=== PATIENT | female | born 1930 | race Caucasian/White ===

== ENCOUNTER → 2017-09-02 | Outpatient (CLI) | payer OTHER ==
[~2017-09-02] MED LIST: ASCAUNK PO; ASPEC81 PO; CBCI IV; CLTP PO; DOXY50CA PO; EPP3/2 IM; FSM70 PO; MULT-190 PO; MULTTAB58 PO; SERT100T PO; SIMV10TA2 PO; STLS PO; selenium PO
--- NOTE | 2017-09-03 07:42 | MAMMOGRAPHY REPORT ---
BILATERAL DIGITAL SCREENING MAMMOGRAM TOMOSYNTHESIS WITH CAD: 09/02/2017 CLINICAL HISTORY: Routine screening. Patient has no complaints. TECHNIQUE: Bilateral CC and MLO views of the breasts were obtained. With and without implant displac ement views were also obtained in the right breast. Tomosynthesis was performed on the right-sided i mplant displaced views and left-sided views. Current study was also evaluated with a Computer Aided Detection (CAD) system. COMPARISON: Comparison is made to exams dated: 08/29/2016 mammogram, 02/27/2016 mammogram, 08/29/2015 ma mmogram, 08/26/2014 mammogram, 08/19/2013 mammogram, and 02/04/2013 mammogram - [facility] enter. BREAST COMPOSITION: There are scattered areas of fibroglandular density in both breasts. FINDINGS: A right-sided subpectoral silicone implant as well as right breast autologous reconstructi on are stable compared to prior mammograms. There are stable postsurgical changes in the left breast , with dystrophic calcifications again seen throughout the left breast. No new suspicious masses, ca lcifications, asymmetries or areas of distortion are identified bilaterally. Recommend routine scree frances in 1 year. IMPRESSION: ACR BI-RADS CATEGORY 1: NEGATIVE There is no mammographic evidence of malignancy. A 1 year screening mammogram is recommended. The pa tient will receive written notification of the results. Approximately 10% of breast cancers are not detected with mammography. A negative mammographic report should not delay biopsy if a clinically suggestive mass is present. Berna Curry M.D. ay/:09/02/2017 16:20:41 [employer]: Sandra MCCONNELL(Perry)(Javier)(BD), [facility] letter sent: Normal 1/2 BI-RADS Code: ACR BI-RADS Category 1: Negative
== END | disposition home or self-care (01) ==
LOC: C.MAMM 13:20
PROVIDERS: ATTEND Internal Medicine Hematology
DX: Z12.31 Encounter for screening mammogram for malignant neoplasm of breast (principal); Z90.11 Acquired absence of right breast and nipple; Z98.82 Breast implant status

== ENCOUNTER 2018-05-16 19:56 | Emergency (ER) | payer OTHER ==
[~2018-05-16] VITALS: Ht 160 cm; Wt 61.3 kg
[2018-05-16 20:01] VITALS: TEMP 36.6; Ht 160 cm; Wt 61.3 kg
[2018-05-16 20:18] VITALS: O2SAT 98
[2018-05-16 20:41] LABS: BASO % 0.4 %; BASO ABS # 0.03 K/uL (0-0.2); EOS % 1.6 %; EOS ABS # 0.13 K/uL (0-0.5); HEMATOCRIT 38.2 % (37-47); HEMOGLOBIN 13.3 g/dL (12.0-16.0); IG# 0.03 K/uL (0.00-0.02); LYMPH % 19.2 %; LYMPH ABS # 1.52 K/uL (1.2-3.4); MEAN CORPUSCULAR HEMOGLOBIN 30.6 pg (25-34); MEAN CORPUSCULAR HGB CONC 34.8 g/dl (32-36); MEAN PLATELET VOLUME 9.6 fL (7.4-10.4); MONO ABS # 0.87 K/uL (0.11-0.59); NEUT % 67.4 %; NEUT ABS # 5.34 K/uL (1.4-6.5); PLATELET COUNT 216 K/uL (130-400); RED CELL DISTRIBUTION WIDTH CV 13.7 % (11.5-14.5); RED CELL DISTRIBUTION WIDTH SD 44.7 fL (36.4-46.3); WHITE BLOOD COUNT 7.92 K/uL (4.8-10.8)
[2018-05-16 21:00] LABS: CALCIUM 8.5 mg/dl (8.5-10.1); CREATININE 0.44 mg/dl (0.60-1.20); POTASSIUM 3.8 mmol/L (3.5-5.1)
--- NOTE | 2018-05-16 21:04 | DIAGNOSTIC IMAGING REPORT ---
CT OF THE HEAD WITHOUT CONTRAST CLINICAL HISTORY: EVALUATE FOR TRAUMA/INJURY COMPARISON STUDY: MRI of the brain August 05, 2009. TECHNIQUE: Helical axial images of the head were obtained without IV contrast. Automated exposure control was utilized for the study. A dose lowering technique was utilized adhering to the principles of ALARA. FINDINGS: No acute intracranial hemorrhage, midline shift or mass effect is present. Ventricular system is normal. Basilar cisterns are patent. No extra-axial collections are present. Lafleur-white differentiation is maintained. There is no calvarial fracture. A small left posterior scalp contusion is present. IMPRESSION: 1. No acute intracranial findings. 2. Small left posterior scalp contusion with no calvarial fracture. Electronically signed by: Alexis Yadav M.D. 05/16/2018 9:03 PM Dictated Date/Time: 05/16/2018 9:01 PM
--- NOTE | 2018-05-16 21:08 | DIAGNOSTIC IMAGING REPORT ---
CT OF THE CERVICAL SPINE WITHOUT CONTRAST CLINICAL HISTORY: EVALUATE FOR TRAUMA/INJURY COMPARISON STUDY: No previous studies for comparison. TECHNIQUE: Helical axial images of the cervical spine were obtained without IV contrast. Sagittal and coronal reconstructions were viewed. A dose lowering technique was utilized adhering to the principles of ALARA. FINDINGS: Alignment of the cervical spine is anatomic. Vertebral body heights are maintained. There is no acute cervical spine fracture. Craniocervical junction is intact. Moderate multilevel degenerative disc disease and facet arthrosis is present. Multinodular thyroid gland is again noted. This was shown on carotid ultrasound of May 27, 2013. IMPRESSION: No acute cervical spine fracture or subluxation. Electronically signed by: Alexis Yadav M.D. 05/16/2018 9:07 PM Dictated Date/Time: 05/16/2018 9:04 PM
--- NOTE | 2018-05-16 21:16 | DIAGNOSTIC IMAGING REPORT ---
CT OF THE CHEST WITHOUT IV CONTRAST CLINICAL HISTORY: Trauma. COMPARISON STUDY: Chest radiograph February 18, 2012. TECHNIQUE: Axial images of the chest were obtained without IV contrast. Images were reviewed in the axial, sagittal, and coronal planes. IV contrast was not administered for this examination. A dose lowering technique was utilized adhering to the principles of ALARA. FINDINGS: A right breast implant is noted. There is no mediastinal hematoma. Heart is mildly enlarged. Multinodular thyroid gland is noted. Central airways are patent. No pneumothorax or pleural effusion is noted. Ground glass opacities reflect atelectasis. There is no pulmonary contusion. No acute rib or thoracic spine fracture is identified. The thoracic spine is better depicted on the thoracic spine CT. The abdomen and pelvis will be reported separately. IMPRESSION: No acute traumatic findings within the chest. Electronically signed by: Alexis Yadav M.D. 05/16/2018 9:14 PM Dictated Date/Time: 05/16/2018 9:07 PM
--- NOTE | 2018-05-16 21:18 | DIAGNOSTIC IMAGING REPORT ---
THORACIC SPINE WITHOUT CLINICAL HISTORY: Pain following fall. COMPARISON STUDY: No previous studies for comparison. TECHNIQUE: Axial images of the thoracic spine were obtained without IV contrast. Sagittal and coronal reconstructions were viewed. FINDINGS: Alignment of the thoracic spine is anatomic. Vertebral body heights are maintained. There is no acute fracture. No suspicious lesion is identified. There is mild disc space narrowing with moderate anterior osteophytosis of the thoracic spine. Central canal and neural foramen are suboptimally assessed given CT technique. IMPRESSION: No acute thoracic spine fracture or subluxation. Electronically signed by: Alexis Yadav M.D. 05/16/2018 9:16 PM Dictated Date/Time: 05/16/2018 9:14 PM
--- NOTE | 2018-05-16 21:28 | DIAGNOSTIC IMAGING REPORT ---
CT OF THE ABDOMEN AND PELVIS WITHOUT CONTRAST CLINICAL HISTORY: Trauma. Lumbar pain. COMPARISON STUDY: CT of the abdomen May 31, 2009. TECHNIQUE: Axial images of the abdomen and pelvis were obtained without IV contrast. Images were reviewed in the axial, sagittal, and coronal planes. A dose lowering technique was utilized adhering to the principles of ALARA. FINDINGS: The chest CT will be reported separately. A right hepatic lobe cyst is noted. 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 There is no evidence for rupture. Evaluation of the solid abdominal viscera is compromised on this unenhanced exam. There is no evidence for traumatic injury to the liver, spleen, adrenal glands, kidneys or pancreas. A 1.8 cm cyst likely within the pancreatic head is similar to previous exam. 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 There is no biliary or pancreatic ductal dilatation. Caliber of small and large bowel are normal. There is moderate distention of the bladder. Images of the pelvis are degraded by streak artifact from a left hip arthroplasty. No acute pelvic fracture is identified. There is no acute lumbar spine fracture. The lumbar spine will be reported separately. Note is made of an acute mildly displaced fracture through the S4 vertebral body. There is an age indeterminate nondisplaced S3 vertebral body fracture. IMPRESSION: 1. Acute nondisplaced fracture through the S4 vertebral body. Age indeterminate nondisplaced S3 vertebral body fracture. 2. No evidence for traumatic injury within the abdomen or pelvis on this unenhanced exam. 3. Moderate distention of the bladder. Electronically signed by: Alexis Yadav M.D. 05/16/2018 9:27 PM Dictated Date/Time: 05/16/2018 9:17 PM
--- NOTE | 2018-05-16 21:32 | DIAGNOSTIC IMAGING REPORT ---
LUMBAR SPINE WITHOUT CLINICAL HISTORY: Lumbar pain following fall. COMPARISON STUDY: Lumbar spine radiographs June 23, 2017. FINDINGS: No acute lumbar spine fracture is identified. Moderate multilevel degenerative disc disease and facet arthrosis is noted. There is mild S-shaped curvature of the lumbar spine. Sacroiliac joints are intact. Note is made of a nondisplaced S3 vertebral body fracture. The S4 fracture is better depicted on the CT of the abdomen and pelvis. IMPRESSION: 1. Age indeterminate, but likely acute, nondisplaced S3 vertebral body fracture. 2. Acute mildly displaced S4 vertebral body fracture which is shown on the CT of the abdomen and pelvis. 3. No acute lumbar spine fracture or subluxation. Electronically signed by: Alexis Yadav M.D. 05/16/2018 9:31 PM Dictated Date/Time: 05/16/2018 9:29 PM
--- NOTE | 2018-05-16 21:38 | DIAGNOSTIC IMAGING REPORT ---
PELVIS 1 OR 2 VIEW ROUTINE CLINICAL HISTORY: Fall. COMPARISON STUDY: Pelvis radiograph July 08, 2014. FINDINGS: Alignment of the total left hip arthroplasty is anatomic. The distal aspect of the femoral component was not imaged on this exam. No fracture is identified within the pelvis or hips. Sacroiliac joints and symphysis pubis are intact. IMPRESSION: 1. No acute fracture within the pelvis or hips. 2. Anatomic alignment of total left hip arthroplasty. Electronically signed by: Alexis Yadav M.D. 05/16/2018 9:37 PM Dictated Date/Time: 05/16/2018 9:36 PM
--- NOTE | 2018-05-16 21:38 | DIAGNOSTIC IMAGING REPORT ---
CHEST ONE VIEW PORTABLE CLINICAL HISTORY: EVALUATE FOR TRAUMA/INJURY COMPARISON STUDY: Chest radiograph February 18, 2012. FINDINGS: No pneumothorax or pleural effusion. Hazy right lower chest density represents breast implant. There is no airspace opacities. Cardiomediastinal silhouette is stable. Appearance of the chest is unchanged. IMPRESSION: No acute cardiopulmonary findings. No change in appearance of the chest. Electronically signed by: Alexis Yadav M.D. 05/16/2018 9:37 PM Dictated Date/Time: 05/16/2018 9:37 PM
[2018-05-16] MEDS ORDERED: KETOROLAC TROMETHAMINE 30 MG/ML VIAL IV STA (21:41)
[2018-05-16] MEDS ORDERED: NORCO 5/325MG HOME PACK PO ONE (21:45)
--- NOTE | 2018-05-16 22:07 | EMERGENCY ROOM VISIT NOTE ---
History Report prepared by Romina: Lucy Adams Under the Supervision of: Dr. Steve George M.D. First contact with patient: 19:58 Chief Complaint: FALL Stated Complaint: FALL/ BACK,NECK,TAILBONE PAIN History of Present Illness The patient is an 88 year old female who presents to the Emergency Room with complaints of an episode of a fall occurring prior to arrival. The patient states that she was walking through her dining room and caught her right foot in her dining room chair. She states that she heard herself hit the floor and could hear her son calling out to her. She reports that she did hit her head and they immediately placed ice in it. The patient complains of her tailbone hurting. She currently rates her pain as a 5/10 in severity. The patient denies dizziness, neck pain, loss of consciousness, nausea, right foot pain, changes in vision, leg pain, and arm pain. The patient notes that she takes a baby Aspirin daily. She notes that her shaking is normal for her when something happens. Source of History: patient Onset: prior to arrival Symptom Intensity: 5/10 Quality: other (fall) Timing: other (episode) Associated Symptoms: No LOC, No neck pain, No nausea Note: The patient complains of tailbone pain. The patient denies dizziness, right foot pain, change in vision, leg pain, and arm pain. Review of Systems See HPI for pertinent positives and negatives. A total of ten systems were reviewed and were otherwise negative. Past Medical & Surgical Medical Problems: (1) Breast cancer (2) Hypercholesterolemia (3) Osteoporosis Family History Diabetes mellitus FH: cancer FHx: gastric ulcer Social History Smoking Status: Never Smoker Smokeless Tobacco Use: No Alcohol Use: none Marital Status: Housing Status: lives with family Current/Historical Medications Scheduled Alendronate (Fosamax *), 70 MG PO WK Ascorbic Acid (Vitamin C Unknown Dose), 1,000 MG PO DAILY Aspirin Enteric Coated (Ecotrin Or Generic *), 81 MG PO DAILY Calcium/Vitamin D (Caltrate 600 Plus *), 1 TAB PO BID Daptomycin (Cubicin), 240 MG IV DAILY Doxycycline Hyclate (Vibramycin), 100 MG PO BID Epinephrine (Epipen), 0.3 MG IM UD Famotidine (Pepcid), 1 TAB PO BID Multiple Vitamin (Multivitamin), 1 TAB PO DAILY Ocuvite Preservision (Ocuvite Preservision), 1 TAB PO DAILY Sertraline Hcl (Zoloft), 100 MG PO DAILY Simvastatin (Zocor), 10 MG PO QPM Stool Softener (Stool Softener), 1 CAP PO BID [selenium], 200 MCG PO DAILY Scheduled PRN Ketorolac Tromethamine (Toradol), 1 TAB PO Q8 PRN for Pain Allergies Coded Allergies: BEE STING (Verified Allergy, Severe, ANAPHYLAXIS, 02/23/12) POLLEN (Verified Allergy, Unknown, unknown, 02/23/12) Physical Exam Vital Signs Date Time Temp Pulse Resp B/P (MAP) Pulse Ox O2 Delivery O2 Flow Rate FiO2 05/16/18 21:07 64 05/16/18 20:18 98 Room Air 05/16/18 20:18 98 Room Air 05/16/18 20:01 36.6 69 20 190/76 98 Room Air Physical Exam GENERAL: Awake, alert, well-appearing, in no distress. In C-collar. HENT: Normocephalic. Oropharynx unremarkable. Slight hematoma on the occiput of the head. EYES: Normal conjunctiva. Sclera non-icteric. NECK: Supple. No nuchal rigidity. In C-collar. RESPIRATORY: Clear to auscultation. No wheezes. Normal respiratory effort. CARDIAC: Normal rate. Normal rhythm. Extremities warm and well perfused. GI: Soft, non-distended. No tenderness to palpation. No rebound or guarding. No masses. RECTAL: Deferred. MUSCULOSKELETAL: Chest examination reveals no tenderness. The back is symmetrical on inspection without obvious abnormality. There is no CVA tenderness to palpation. Mild diffuse tenderness through the thoracic spine. Sacral tenderness. LOWER EXTREMITIES: Calves are equal size bilaterally and non-tender. No edema NEURO: Normal sensorium. No sensory or motor deficits noted. SKIN: Warm and dry. No rash or jaundice noted. No lacerations. Medical Decision & Procedures ER Provider Diagnostic Interpretation: Radiology results as stated below per my review and radiologist interpretation: THORACIC SPINE WITHOUT CLINICAL HISTORY: Pain following fall. COMPARISON STUDY: No previous studies for comparison. TECHNIQUE: Axial images of the thoracic spine were obtained without IV contrast. Sagittal and coronal reconstructions were viewed. FINDINGS: Alignment of the thoracic spine is anatomic. Vertebral body heights are maintained. There is no acute fracture. No suspicious lesion is identified. There is mild disc space narrowing with moderate anterior osteophytosis of the thoracic spine. Central canal and neural foramen are suboptimally assessed given CT technique. IMPRESSION: No acute thoracic spine fracture or subluxation. Electronically signed by: Alexis Yadav M.D. 05/16/2018 9:16 PM Dictated Date/Time: 05/16/2018 9:14 PM PELVIS 1 OR 2 VIEW ROUTINE CLINICAL HISTORY: Fall. COMPARISON STUDY: Pelvis radiograph July 08, 2014. FINDINGS: Alignment of the total left hip arthroplasty is anatomic. The distal aspect of the femoral component was not imaged on this exam. No fracture is identified within the pelvis or hips. Sacroiliac joints and symphysis pubis are intact. IMPRESSION: 1. No acute fracture within the pelvis or hips. 2. Anatomic alignment of total left hip arthroplasty. Electronically signed by: Alexis Yadav M.D. 05/16/2018 9:37 PM Dictated Date/Time: 05/16/2018 9:36 PM LUMBAR SPINE WITHOUT CLINICAL HISTORY: Lumbar pain following fall. COMPARISON STUDY: Lumbar spine radiographs June 23, 2017. FINDINGS: No acute lumbar spine fracture is identified. Moderate multilevel degenerative disc disease and facet arthrosis is noted. There is mild S-shaped curvature of the lumbar spine. Sacroiliac joints are intact. Note is made of a nondisplaced S3 vertebral body fracture. The S4 fracture is better depicted on the CT of the abdomen and pelvis. IMPRESSION: 1. Age indeterminate, but likely acute, nondisplaced S3 vertebral body fracture. 2. Acute mildly displaced S4 vertebral body fracture which is shown on the CT of the abdomen and pelvis. 3. No acute lumbar spine fracture or subluxation. Electronically signed by: Alexis Yadav M.D. 05/16/2018 9:31 PM Dictated Date/Time: 05/16/2018 9:[address] OF THE HEAD WITHOUT CONTRAST CLINICAL HISTORY: EVALUATE FOR TRAUMA/INJURY COMPARISON STUDY: MRI of the brain August 05, 2009. TECHNIQUE: Helical axial images of the head were obtained without IV contrast. Automated exposure control was utilized for the study. A dose lowering technique was utilized adhering to the principles of ALARA. FINDINGS: No acute intracranial hemorrhage, midline shift or mass effect is present. Ventricular system is normal. Basilar cisterns are patent. No extra-axial collections are present. Lafleur-white differentiation is maintained. There is no calvarial fracture. A small left posterior scalp contusion is present. IMPRESSION: 1. No acute intracranial findings. 2. Small left posterior scalp contusion with no calvarial fracture. Electronically signed by: Alexis Yadav M.D. 05/16/2018 9:03 PM Dictated Date/Time: 05/16/2018 9:01 PM CHEST ONE VIEW PORTABLE CLINICAL HISTORY: EVALUATE FOR TRAUMA/INJURY COMPARISON STUDY: Chest radiograph February 18, 2012. FINDINGS: No pneumothorax or pleural effusion. Hazy right lower chest density represents breast implant. There is no airspace opacities. Cardiomediastinal silhouette is stable. Appearance of the chest is unchanged. IMPRESSION: No acute cardiopulmonary findings. No change in appearance of the chest. Electronically signed by: Alexis Yadav M.D. 05/16/2018 9:37 PM Dictated Date/Time: 05/16/2018 9:[address] OF THE CHEST WITHOUT IV CONTRAST CLINICAL HISTORY: Trauma. COMPARISON STUDY: Chest radiograph February 18, 2012. TECHNIQUE: Axial images of the chest were obtained without IV contrast. Images were reviewed in the axial, sagittal, and coronal planes. IV contrast was not administered for this examination. A dose lowering technique was utilized adhering to the principles of ALARA. FINDINGS: A right breast implant is noted. There is no mediastinal hematoma. Heart is mildly enlarged. Multinodular thyroid gland is noted. Central airways are patent. No pneumothorax or pleural effusion is noted. Ground glass opacities reflect atelectasis. There is no pulmonary contusion. No acute rib or thoracic spine fracture is identified. The thoracic spine is better depicted on the thoracic spine CT. The abdomen and pelvis will be reported separately. IMPRESSION: No acute traumatic findings within the chest. Electronically signed by: Alexis Yadav M.D. 05/16/2018 9:14 PM Dictated Date/Time: 05/16/2018 9:[address] OF THE CERVICAL SPINE WITHOUT CONTRAST CLINICAL HISTORY: EVALUATE FOR TRAUMA/INJURY COMPARISON STUDY: No previous studies for comparison. TECHNIQUE: Helical axial images of the cervical spine were obtained without IV contrast. Sagittal and coronal reconstructions were viewed. A dose lowering technique was utilized adhering to the principles of ALARA. FINDINGS: Alignment of the cervical spine is anatomic. Vertebral body heights are maintained. There is no acute cervical spine fracture. Craniocervical junction is intact. Moderate multilevel degenerative disc disease and facet arthrosis is present. Multinodular thyroid gland is again noted. This was shown on carotid ultrasound of May 27, 2013. IMPRESSION: No acute cervical spine fracture or subluxation. Electronically signed by: Alexis Yadav M.D. 05/16/2018 9:07 PM Dictated Date/Time: 05/16/2018 9:[address] OF THE ABDOMEN AND PELVIS WITHOUT CONTRAST CLINICAL HISTORY: Trauma. Lumbar pain. COMPARISON STUDY: CT of the abdomen May 31, 2009. TECHNIQUE: Axial images of the abdomen and pelvis were obtained without IV contrast. Images were reviewed in the axial, sagittal, and coronal planes. A dose lowering technique was utilized adhering to the principles of ALARA. FINDINGS: The chest CT will be reported separately. A right hepatic lobe cyst is noted. 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 There is no evidence for rupture. Evaluation of the solid abdominal viscera is compromised on this unenhanced exam. There is no evidence for traumatic injury to the liver, spleen, adrenal glands, kidneys or pancreas. A 1.8 cm cyst likely within the pancreatic head is similar to previous exam. 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 There is no biliary or pancreatic ductal dilatation. Caliber of small and large bowel are normal. There is moderate distention of the bladder. Images of the pelvis are degraded by streak artifact from a left hip arthroplasty. No acute pelvic fracture is identified. There is no acute lumbar spine fracture. The lumbar spine will be reported separately. Note is made of an acute mildly displaced fracture through the S4 vertebral body. There is an age indeterminate nondisplaced S3 vertebral body fracture. IMPRESSION: 1. Acute nondisplaced fracture through the S4 vertebral body. Age indeterminate nondisplaced S3 vertebral body fracture. 2. No evidence for traumatic injury within the abdomen or pelvis on this unenhanced exam. 3. Moderate distention of the bladder. Electronically signed by: Alexis Yadav M.D. 05/16/2018 9:27 PM Dictated Date/Time: 05/16/2018 9:17 PM Laboratory Results 05/16/18 20:20 Red Blood Count 4.34, Mean Corpuscular Volume 88.0, Mean Corpuscular Hemoglobin 30.6, Mean Corpuscular Hemoglobin Concent 34.8, Mean Platelet Volume 9.6, Neutrophils (%) (Auto) 67.4, Lymphocytes (%) (Auto) 19.2, Monocytes (%) (Auto) 11.0, Eosinophils (%) (Auto) 1.6, Basophils (%) (Auto) 0.4, Neutrophils # (Auto ) 5.34, Lymphocytes # (Auto) 1.52, Monocytes # (Auto) 0.87, Eosinophils # (Auto ) 0.13, Basophils # (Auto) 0.03 05/16/18 20:20 Test 05/16/18 20:20 05/16/18 20:21 White Blood Count 7.92 K/uL (4.8-10.8) Red Blood Count 4.34 M/uL (4.2-5.4) Hemoglobin 13.3 g/dL (12.0-16.0) Hematocrit 38.2 % (37-47) Mean Corpuscular Volume 88.0 fL (80-100) Mean Corpuscular Hemoglobin 30.6 pg (25-34) Mean Corpuscular Hemoglobin Concent 34.8 g/dl (32-36) Platelet Count 216 K/uL (130-400) Mean Platelet Volume 9.6 fL (7.4-10.4) Neutrophils (%) (Auto) 67.4 % Lymphocytes (%) (Auto) 19.2 % Monocytes (%) (Auto) 11.0 % Eosinophils (%) (Auto) 1.6 % Basophils (%) (Auto) 0.4 % Neutrophils # (Auto) 5.34 K/uL (1.4-6.5) Lymphocytes # (Auto) 1.52 K/uL (1.2-3.4) Monocytes # (Auto) 0.87 K/uL (0.11-0.59) Eosinophils # (Auto) 0.13 K/uL (0-0.5) Basophils # (Auto) 0.03 K/uL (0-0.2) RDW Standard Deviation 44.7 fL (36.4-46.3) RDW Coefficient of Variation 13.7 % (11.5-14.5) Immature Granulocyte % (Auto) 0.4 % Immature Granulocyte # (Auto) 0.03 K/uL (0.00-0.02) Anion Gap 9.0 mmol/L (3-11) Est Creatinine Clear Calc Drug Dose 75.9 ml/min Estimated GFR () 105.9 Estimated GFR (Non- 91.4 BUN/Creatinine Ratio 28.2 (10-20) Calcium Level 8.5 mg/dl (8.5-10.1) Bedside Glucose 100 mg/dl (70-90) Laboratory results reviewed by me ED Course 1958: The patient was evaluated in room C3. A complete history and physical exam was performed. 2133: I reevaluated the patient. Discussed results and discharge instructions: She verbalized understanding and agreement. The patient is ready for discharge. 2140: Ordered Toradol Inj 15 mg IV. 2144: Ordered Grand Ledge 5/325mg Home Pack 1 homepack PO. Medical Decision Differential diagnosis: Etiologies such as fracture, dislocation, intra-abdominal, pneumothorax, intrathoracic , intracranial, neurologic, as well as other traumatic pathologies were entertained. Patient presents after mechanical fall; ground level. No LOC but on aspirin. Small hematoma in the back of her head with out laceration and some thoracic and sacral back pain. Denies injury to extremities. Denied presyncopal complaints. Basic CBC and basic metabolic panel obtained and unremarkable. CTs completed to exclude traumatic injury. Patient removed from backboard. C- spine CT negative and cervical collar cleared. No intracranial injury. No acute traumatic injury of the chest abdomen and pelvis. Thoracic and lumbar spine CT show no acute trauma. Evidence of a nondisplaced fracture through the S4 vertebral body and age-indeterminate nondisplaced S3 vertebral body fracture. No acute neurological deficits from this at this time. Will attempt pain control predominantly with [id number] Tylenol. Wanted a prescription for Toradol which was prescribed along with Pepcid for a brief course of pain control. Patient declined Grand Ledge to go pack for breakthrough pain. Discussed with patient and sons who are in agreement with this plan. Follow-up with PCP in the next week. Discussed return criteria.. Medication Reconcilliation Current Medication List: was personally reviewed by me Blood Pressure Screening Patient's blood pressure: Elevated blood pressure Blood pressure disposition: Referred to PCP Impression Primary Impression: Fall Additional Impressions: Sacral back pain Sacral fracture, closed Scribe Attestation The scribe's documentation has been prepared under my direction and personally reviewed by me in its entirety. I confirm that the note above accurately reflects all work, treatment, procedures, and medical decision making performed by me. Departure Information Dispostion Home / Self-Care Prescriptions Famotidine (PEPCID) 20 Mg Tab 1 TAB PO BID for 10 Days, #20 TAB 5 Refills Prov: Steve George M.D. 05/16/18 Ketorolac Tromethamine (TORADOL) 10 Mg Tab 1 TAB PO Q8 Y for Pain for 3 Days, #9 TAB Prov: Steve George M.D. 05/16/18 Referrals Shanell Thomas D.O. (PCP) Forms HOME CARE DOCUMENTATION FORM, IMPORTANT VISIT INFORMATION Patient Instructions My [facility] [place] [employer] Additional Instructions Use [id number] Tylenol or Motrin/Aleve to help with pain control. If you experience severe pain you may utilize the Grand Ledge given to you here please be careful with it as it may make you somewhat tired and unbalanced. Do not operate heavy machinery if you do use it. Follow-up with your primary care physician in the next week. If you have any new or worrisome symptoms please return for re-evalulation. [place] to avoid falls in the future. Problem Qualifiers Primary Impression: Fall Encounter type: initial encounter Qualified Codes: W19.XXXA - Unspecified fall, initial encounter Additional Impressions: Sacral fracture, closed Encounter type: initial encounter Zone of sacrum fracture: unspecified portion of sacrum Qualified Codes: S32.10XA - Unspecified fracture of sacrum, initial encounter for closed fracture
[2018-05-16] MEDS ORDERED: FAMO20TA9 PO (22:09)
[2018-05-16] MEDS ORDERED: KETO10TA PO (22:09)
[2018-05-16 22:32] VITALS: BP 167/83; PULSE 79; O2SAT 97
== END 2018-05-16 22:33 | disposition home or self-care (01) ==
LOC: EDBD 19:56 → C.EDC 19:57
DX: S32.10XA Unspecified fracture of sacrum, initial encounter for closed fracture (principal); S00.03XA Contusion of scalp, initial encounter; W18.09XA Striking against other object with subsequent fall, initial encounter; Y93.01 Activity, walking, marching and hiking; Y92.011 Dining room of single-family (private) house as the place of occurrence of the external cause; Y99.8 Other external cause status; R03.0 Elevated blood-pressure reading, without diagnosis of hypertension; M81.0 Age-related osteoporosis without current pathological fracture; Z79.82 Long term (current) use of aspirin; E78.00 Pure hypercholesterolemia, unspecified; Z91.030 Bee allergy status; Z91.048 Other nonmedicinal substance allergy status